=== PATIENT | female | born 1985 | race Caucasian/White ===

== ENCOUNTER → 2022-06-01 08:33 | Outpatient (BNVA) | payer BC, SELFPAY | PROVIDERS: Family Provider Nurse Practitioner Family; PCP Nurse Practitioner Family; Visit Provider Nurse Practitioner Family | DX: R31.9 Hematuria, unspecified (principal) | CPT/HCPCS: 81000 ==

== ENCOUNTER → 2022-06-16 10:25 | Outpatient (BNVA) | payer BC, SELFPAY | PROVIDERS: Family Provider Nurse Practitioner Family; PCP Nurse Practitioner Family; Visit Provider Nurse Practitioner Family | DX: N39.0 Urinary tract infection, site not specified (principal); R31.9 Hematuria, unspecified | CPT/HCPCS: 81000; 87077; 87086; 87184 ==

== ENCOUNTER 2022-06-19 16:13 | Emergency (ER) | payer BC, SELFPAY ==
[2022-06-19 16:18] VITALS: PULSE 124; RESP 28; TEMP 36; O2SAT 97; BMI 23.1
[2022-06-19 16:26] VITALS: BP 163/88
--- NOTE | 2022-06-19 16:27 | ECG_ITS ---
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 Measurements Intervals [place] Rate: 97 P: 65 MO: 143 QRS: 61 QRSD: 81 T: 50 QT: 345 QTc: 438 Interpretive Statements SINUS RHYTHM No previous ECG available for comparison Electronically Signed On 06-20-2022 17:39:08 CDT by Esteban Robison M.D. [email or web address]
--- NOTE | 2022-06-19 19:33 | PC.NURSE ---
attempted to reassess pt and obtain vs no answer from lobby.
== END 2022-06-19 19:50 | disposition left against medical advice (07) ==
PROVIDERS: Emergency Provider Family Medicine; PCP Nurse Practitioner Family
DX: Z53.21 Procedure and treatment not carried out due to patient leaving prior to being seen by health care provider (principal)
CPT/HCPCS: 93005

== ENCOUNTER → 2022-06-27 14:28 | Outpatient (BNVA) | payer BC, SELFPAY | PROVIDERS: PCP Nurse Practitioner Family; Visit Provider Nurse Practitioner Family | DX: N39.0 Urinary tract infection, site not specified (principal) | CPT/HCPCS: 81000; 87086 ==

== ENCOUNTER 2022-08-14 13:07 | Emergency (ER) | payer BC, SELFPAY ==
[2022-08-14] VITALS (8 sets, daily range): BP systolic 105–127; BP diastolic 53–86; PULSE 88–98; RESP 16–18; TEMP 36.3; O2SAT 94–99; BMI 20.7
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
[2022-08-14 13:53] LABS: Basophils % 0.2 %; Eosinophils # 0.2 10^3/uL (0.0-0.8); Eosinophils % 1.8 %; Hematocrit 40.7 % (37.0-47.0); Hemoglobin 13.5 g/dL (11.5-15.3); Lymphocytes # 0.8 10^3/uL (0.8-4.8); Lymphocytes % 7.7 %; Mean Corpuscular HGB Conc 33.2 g/dL (30.0-36.0); Mean Corpuscular Hemoglobin 32.1 pg (28.0-34.0); Mean Corpuscular Volume 96.9 fl (81-99); Mean Platelet Volume 10.2 fL (7.4-10.4); Monocytes # 0.6 10^3/uL (0.2-0.9); Monocytes % 5.5 %; Neutrophils # 8.77 10^3/uL (1.8-7.7); Neutrophils % 84.3 %; Nucleated Red Blood Cells % 0 %; Platelet Count 475 10^3/cmm (130-400); Red Cell Distribution Width 14.8 % (12.1-15.1); White Blood Count 10.4 10^3/uL (4.0-10.0)
[2022-08-14 14:37] LABS: HCG, Serum Qual Negative (Negative)
[2022-08-14 14:45] LABS: Alanine Aminotransferase 11 U/L (0-33); Albumin Level 3.3 g/dL (3.5-5.2); Alkaline Phosphatase 130 U/L (35-105); Anion Gap 16.3 (5-19); Aspartate Amino Transferase 9 U/L (0-32); Blood Urea Nitrogen 8 mg/dL (6-20); Calcium 9.3 mg/dL (8.5-10.5); Carbon Dioxide 26 mmol/L (22-29); Chloride 97 mmol/L (98-107); Glomerular Filtration Rate 178.6 mL/min (90-130); Glucose 133 mg/dL (65-115); Lipase 180 U/L (13-60); Osmolality Calculated 282 mOsm/kg (285-295); Potassium 3.3 mmol/L (3.5-5.1); Sodium 136 mmol/L (136-145); Total Bilirubin 0.5 mg/dL (0.15-1.2); Total Protein 6.3 g/dL (6.6-8.7)
[2022-08-14] MEDS: iohexol 350 mg/mL 100 mL Btl IV (14:56)
[2022-08-14 14:57] LABS: Bilirubin Urine 1+ (Negative); Blood Urine 2+ (Negative); Glucose Urine UA Norm (Normal); Ketones Urine Negative (Negative); Nitrate Urine Negative (Negative); Protein Urine Trace (Negative); Urine Appearance Hazy (CLEAR); Urine Color Yellow (Yellow); pH Urine 6 (5-7)
[2022-08-14 14:58] LABS: Add Urine Microscopic? YES; Leukocyte Esterase Urine 1+ (Negative); Urobilinogen Urine 1 mg/dL (Negative)
[2022-08-14 14:59] LABS: Add Urine Culture? Yes; Bacteria Urine 1+ /hpf; Mucus Urine 1+ /hpf
[2022-08-14] MEDS: ondansetron 2 mg/ML SDV 2 mL 4 MG IVP (16:11)
[2022-08-14] MEDS: sodium chloride 0.9% 500 ML 999 ML IV (16:11)
[2022-08-14] MEDS: morphine 4 mg/mL SDV 1 mL IVP ×3 (16:12→21:30)
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
[2022-08-14 18:35] LABS: Amylase 317 U/L (28-100)
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
[2022-08-15] VITALS (7 sets, daily range): BP systolic 100–124; BP diastolic 56–84; PULSE 79–89; RESP 14; O2SAT 94–97
[2022-08-15] MEDS: ondansetron 2 mg/ML SDV 2 mL 4 MG IVP (03:19)
[2022-08-15] MEDS: morphine 4 mg/mL SDV 1 mL IVP ×3 (03:19→12:22)
== END 2022-08-15 12:20 ==
PROVIDERS: Emergency Provider Physician Assistant; PCP Nurse Practitioner Family
DX: S36.499A Other injury of unspecified part of small intestine, initial encounter (principal); V48.0XXA Car driver injured in noncollision transport accident in nontraffic accident, initial encounter; K85.90 Acute pancreatitis without necrosis or infection, unspecified
CPT/HCPCS: 12345; 70450; 70486; 71260; 74177; 76705; 80053; 81001; 82150; 83690; 84703; 85025; 87086; 96361; 96365; 96375; 96376; 99285; J0743; J2270; J2405; J7040; Q9967